=== PATIENT | female | born 1970 | race Caucasian/White ===

== ENCOUNTER 2017-08-19 07:45 | Outpatient (CLI) | payer BC ==
--- NOTE | 2017-08-19 13:12 | NM ---
GASTRIC EMPTYING STUDY: DATE: 08/19/17. PROVIDED CLINICAL HISTORY: Disease of digestive system, unspecified. RDIOPHARMACEUTICAL: 2 mCi Technetium 99m labeled sulfur colloid in egg orally. FINDINGS: Anterior planar imaging was performed over the stomach. Gastric emptying half-time is calculated at 63 minutes, which is within normal limits. IMPRESSION: Normal gastric emptying study. POS: [facility]
== END 2017-08-19 07:46 | disposition home or self-care (01) ==
LOC: NM 07:45
PROVIDERS: ATTEND Internal Medicine Gastroenterology
DX: K92.9 Disease of digestive system, unspecified (principal); R14.0 Abdominal distension (gaseous)
CPT/HCPCS: 78264; A9541